=== PATIENT | male | born 1985 ===

== ENCOUNTER 2022-12-10 11:07 | Outpatient (CLI) | payer OTHER | END 2022-12-10 11:08 | disposition home or self-care (01) | LOC: MRI 11:07 | DX: M23.92 Unspecified internal derangement of left knee (principal); M25.562 Pain in left knee; M54.50 Low back pain, unspecified; M51.36 Other intervertebral disc degeneration, lumbar region; M51.37 Other intervertebral disc degeneration, lumbosacral region; M48.07 Spinal stenosis, lumbosacral region | CPT/HCPCS: 72148 ==